=== PATIENT | male | born 1980 | race Caucasian/White ===

== ENCOUNTER 2018-02-01 22:20 | Emergency (ER) | payer SELFPAY ==
[~2018-02-01] VITALS: Ht 182.9 cm; Wt 79.8 kg
--- NOTE | 2018-02-01 22:45 | NUR ---
PT COMES TO ER WITH C/O RIGHT MIDDLE FINGER INJURY.
--- NOTE | 2018-02-01 22:49 | NUR ---
XRAY AT BEDSIDE
--- NOTE | 2018-02-01 23:21 | NUR ---
applied finger splint and pt given referral to [facility] or [facility].
--- NOTE | 2018-02-01 23:21 | NUR ---
Patient discharged to home in stable conditon. Written and verbal after care instructions given. Patient verbalizes understanding of instructions. Patient left ER and walks in steady gait. accompanied by friend.
[2018-02-01 23:24] VITALS: BP 152/94
== END 2018-02-01 23:25 | disposition home or self-care (01) ==
LOC: ER 22:22
DX: S62.632A Displaced fracture of distal phalanx of right middle finger, initial encounter for closed fracture (principal); I10 Essential (primary) hypertension; X58.XXXA Exposure to other specified factors, initial encounter; Y93.64 Activity, baseball; Y92.89 Other specified places as the place of occurrence of the external cause; Y99.8 Other external cause status
CPT/HCPCS: 73140; A4663